=== PATIENT | female | born 1940 | race Caucasian/White ===

== ENCOUNTER 2019-08-06 05:03 | Inpatient (IN) | payer BC ==
[~2019-08-06] VITALS: Ht 160 cm; Wt 65.8 kg
[~2019-08-06 05:03] MED LIST: ALPRAZOLAM; ALPRAZOLAM2 MG PO; ARICEPT10 M1 PO; CLONAZEPAM 1 MG1 M1 PO; DEPAKOTE; DEPAKOTE500 MG PO; ESTRACE2 MG PO; ESTRADIOL; GLUCOPHAGE500 MG PO; KEFLEX500 MG PO; LEVOTHYROXINE; METFORMIN; RENVELA800 MG PO; RESTORIL15 MG PO; SEROQUEL200 MG PO; SIMVASTATIN80 MG PO; SYNTHROID88 MC1 PO; TRIPHROCAPS SOFT1 MG PO; ZOLOFT; ZOLOFT100 MG PO
[2019-08-06 05:05] VITALS: BP 168/63
[2019-08-06] MEDS ORDERED: ZONEGRAN100 MG PO (05:30)
[2019-08-06] MEDS ORDERED: BUSPIRONE HCL10 MG PO (05:31)
[2019-08-06 05:32] LABS: ABSOLUTE EOSINOPHILS 0.1 thou/uL (0.0-0.7); ABSOLUTE LYMPHOCYTES 3.8 thou/uL (0.8-5.3); ABSOLUTE MONOCYTES 0.7 thou/uL (0.0-1.2); ABSOLUTE NEUTROPHILS 4.6 thou/uL (1.6-8.1); BASOPHILS 0.4 %; EOSINOPHILS 0.7 %; HEMATOCRIT 34.6 % (37.0-47.0); HEMOGLOBIN 11.7 gm/dL (12.0-15.0); LYMPHOCYTES 41.4 %; MCH 32.2 pg (26.0-34.0); MCHC 33.9 g/dL (28.0-37.0); MCV 94.9 fL (80.0-100.0); MONOCYTES 7.5 %; MPV 6.7 fl. (7.2-11.1); NUCLEATED RBCS 0 /100WBC; PLATELET COUNT* 262 thou/uL (150-400); RBC 3.65 mil/uL (4.20-5.00); RDW-CV 13.5 % (10.5-14.5); WBC 9.1 thou/uL (4.0-11.0)
[2019-08-06] MEDS ORDERED: NAMENDA 10 MG T10 MG PO (05:32)
[2019-08-06] MEDS ORDERED: SINGULAIR 10 MG10 M1 PO (05:34)
[2019-08-06] MEDS ORDERED: VITAMIN D35000 UNI2 PO (05:34)
[2019-08-06] MEDS ORDERED: TIZANIDINE HCL2 M1 PO (05:35)
[2019-08-06 05:37] LABS: CALCIUM 9.2 mg/dL (8.5-10.1); CREATININE 1.1 mg/dL (0.6-1.3); POTASSIUM 3.5 mmol/L (3.5-5.1)
[2019-08-06 05:43] LABS: ALBUMIN 3.4 g/dL (3.4-5.0); TOTAL BILIRUBIN 0.1 mg/dL (<0.1-1.0); TOTAL PROTEIN 7.8 g/dL (6.4-8.2)
[2019-08-06 07:46] VITALS: BP 134/59
[2019-08-06 12:30] VITALS: BP 122/53
[2019-08-06 13:40] VITALS: BP 102/49
[2019-08-06] MEDS ORDERED: DIVALPROEX SOD500 MG PO (14:54)
[2019-08-06 16:23] VITALS: BP 109/55
--- NOTE | 2019-08-06 19:33 | NUR ---
PT ARRIVED TO ROOM 200 AT APPROX 1230 FROM SURGERY. PT A/O X4 BUT FORGETFUL. C/O PAIN AT 10/10 IN RIGHT LEG. PAIN MEDS GIVEN PER MAR, PT REPORTS NO RELIEF. ADMISSION ASSESMENT DONE CHARTED. REVIEWED HOME MEDS PER LIST GIVEN BY . PT UP WITH ASSIST TO BSC, NWB RIGHT LEG, HAD SOME TROUBLE URINATING ON THE BEDPAN, WAS ABLE TO VOID PER BSC. FALL PRECAUTIONS IN PLACE. PT USES CALL LIGHT FOR NEEDS. REPORT GIVEN TO MARIAELENA NICHOLS
[2019-08-06 20:00] VITALS: BP 129/53
[2019-08-07] VITALS: BP 108/46
[2019-08-07 04:00] VITALS: BP 104/47
[2019-08-07 08:00] VITALS: BP 119/50
--- NOTE | 2019-08-07 10:33 | EKG ---
[place] [address] ELECTROCARDIOGRAM REPORT Name: SHRUTHI MARTINNIFRED Waleska Room: [address] ADM IN M.R.#: [id number] Admission: 08/06/19 Attend Phys: Rosita Scherer Discharge: Date of : 42 Report #: [id number] THIS REPORT FOR: //name// [facility] ED Test Date: 2019-08-06 Test Time: 05:42:34 Pat Name: FARHEEN MARTIN Department: Room: [facility] Gender: F Hose Tester: [place] : 1940 Requested By: Mariajose Sullivan Order Number: [id number] MD: Porter Iqbal Measurements Intervals [place] Rate: 89 P: 54 MT: 167 QRS: 48 QRSD: 88 T: 56 QT: 361 QTc: 440 Interpretive Statements Sinus rhythm Abnormal R-wave progression, early transition Compared to ECG 01/03/2013 18:19:17 No significant changes Electronically Signed On 08-07-2019 10:32:41 HOME ENERGY AUDITOR by Porter Iqbal [email or web address] <ELECTRONICALLY SIGNED> By: Daniel Iqbal MD, [facility] 08/07/19 1032 0542 [id number] Daniel Iqbal MD, [facility] /EPI
[2019-08-07 12:29] VITALS: BP 122/60
[2019-08-07 16:01] VITALS: BP 116/91
--- NOTE | 2019-08-07 19:50 | NUR ---
assumed pt care at 0730, full assesment done as charted. pt a/o x4, forgetful. up with assist, gait belt, walker, NWB right leg. pt transfering well with turn and pivot. fall precatuions in place. pt c/o pain to right leg 05/05, pain meds given per mar with no relief. pt calls frequently for needs. hopeful to get surgery on leg soon. at bedside this afternoon. report given to Radha NICHOLS
[2019-08-07 20:00] VITALS: BP 155/59
[2019-08-08 00:01] VITALS: BP 121/52
--- NOTE | 2019-08-08 02:02 | NUR ---
ASSUMED CARE OF PATIENT AT 1900. VSS, AFEBRILE. UP TO THE BSC SEVERAL TIMES TO VOID. LACTATED RINGERS STILL RUNNING PER ORDERS. REQUESTS PAIN MEDS OFTEN. STATES NOTHING HELPS. PAIN IS ALWAYS A 10. PRN MEDS GIVEN ORDERED. NO NEW ORDERS REGARDING SURGERY. RIGHT LEG DRESSING IS C/D/I. WORKING TOWARDS POC GOALS.
[2019-08-08 04:00] VITALS: BP 103/45
[2019-08-08 04:42] LABS: ABSOLUTE BASOPHILS 0.1 thou/uL (0.0-0.2); ABSOLUTE EOSINOPHILS 0.1 thou/uL (0.0-0.7); ABSOLUTE LYMPHOCYTES 2.6 thou/uL (0.8-5.3); ABSOLUTE MONOCYTES 0.6 thou/uL (0.0-1.2); ABSOLUTE NEUTROPHILS 3.2 thou/uL (1.6-8.1); BASOPHILS 0.9 %; EOSINOPHILS 1.3 %; HEMATOCRIT 23.5 % (37.0-47.0); LYMPHOCYTES 39.6 %; MCH 32.2 pg (26.0-34.0); MCHC 34.4 g/dL (28.0-37.0); MCV 93.6 fL (80.0-100.0); MONOCYTES 9.5 %; NUCLEATED RBCS 0 /100WBC; PLATELET COUNT* 194 thou/uL (150-400); POLYS 48.7 %; RBC 2.51 mil/uL (4.20-5.00); RDW-CV 13.4 % (10.5-14.5); WBC 6.6 thou/uL (4.0-11.0)
[2019-08-08 04:53] LABS: HEMOGLOBIN 8.1 gm/dL (12.0-15.0)
[2019-08-08 05:06] LABS: ALBUMIN 2.4 g/dL (3.4-5.0); CALCIUM 8.3 mg/dL (8.5-10.1); CREATININE 0.8 mg/dL (0.6-1.3); POTASSIUM 4.1 mmol/L (3.5-5.1); TOTAL BILIRUBIN 0.1 mg/dL (<0.1-1.0); TOTAL PROTEIN 5.9 g/dL (6.4-8.2)
[2019-08-08 08:00] VITALS: BP 115/48
[2019-08-08 11:15] VITALS: BP 115/59
--- NOTE | 2019-08-08 11:29 | NUR ---
Pt is A&O. Resides at home with her . Independent. Pt primarily uses a walker, but also has a wc. Pt states that she had a knee replacement in December 2018. Hx of [facility]. Hx of skilled at [facility]. Per Pt, plan surgery tomorrow. Pt states that if she needs skilled, she wants to go to [place] in [facility] to check to see if [place] accepts Pt's insurance. Following.
--- NOTE | 2019-08-08 16:26 | NUR ---
RECEIVED REPORT FROM YULY NICHOLS. ASSUMED CARE OF PT AROUND 0730, PT A&O X4 BUT FORGETFUL AT TIMES. VSS. CAR LOT ATTENDANT IN PLACE TRACING SR WITH NO CHANGES SO FAR THIS SHIFT. AM ASSESSMENT AND VITALS COMPLETED CHARTED. IV INTACT AND INFUSING IVF. MEDS PER EMAR. PT HAS REPORTED RIGHT LEG PAIN THAT HAS BEEN MANAGED WITH PO PAIN MEDICATION WITH PARTIAL RELIEF. PT TOLERTING DIET. DRINKING WELL. FAMILY AT BEDSIDE THIS AFTERNOON. PT WORKED WITH PT AND OT THIS SHIFT. PT TRANSFERING WELL TO BEDSIDE COMMODE WITH ASSIST X1, WALKER AND GAIT BELF - NWB TO RIGHT LEG MAINTAINED. PT CURRENLTY RESTING IN BED WATCHING TV. FALL PRECAUTIONS IN PLACE. CALL LIGHT IS WITHIN REACH. HOURLY ROUNDING PERFORMED. PT TO TRANSFER TO [facility] ROOM 115. REPORT CALLED TO TIM NICHOLS.
--- NOTE | 2019-08-08 16:45 | NUR ---
REC'D TO RM 215 TRANSFER FROM TELE. REPORT REC'D. ~TJRN
[2019-08-08 20:00] VITALS: BP 130/55
[2019-08-09 04:25] LABS: ABSOLUTE EOSINOPHILS 0.1 thou/uL (0.0-0.7); ABSOLUTE LYMPHOCYTES 2.9 thou/uL (0.8-5.3); ABSOLUTE MONOCYTES 0.7 thou/uL (0.0-1.2); ABSOLUTE NEUTROPHILS 2.5 thou/uL (1.6-8.1); BASOPHILS 0.7 %; EOSINOPHILS 2.4 %; HEMATOCRIT 23.7 % (37.0-47.0); HEMOGLOBIN 8.1 gm/dL (12.0-15.0); LYMPHOCYTES 46.6 %; MCH 32.3 pg (26.0-34.0); MCHC 34.4 g/dL (28.0-37.0); MCV 93.9 fL (80.0-100.0); MONOCYTES 10.4 %; MPV 6.9 fl. (7.2-11.1); NUCLEATED RBCS 0 /100WBC; PLATELET COUNT* 215 thou/uL (150-400); POLYS 39.9 %; RBC 2.52 mil/uL (4.20-5.00); RDW-CV 13.3 % (10.5-14.5); WBC 6.3 thou/uL (4.0-11.0)
[2019-08-09 04:51] LABS: ALBUMIN 2.5 g/dL (3.4-5.0); CALCIUM 8.6 mg/dL (8.5-10.1); CREATININE 0.8 mg/dL (0.6-1.3); POTASSIUM 3.5 mmol/L (3.5-5.1); TOTAL BILIRUBIN 0.1 mg/dL (<0.1-1.0); TOTAL PROTEIN 6.1 g/dL (6.4-8.2)
[2019-08-09 05:34] VITALS: BP 121/54
[2019-08-09 06:15] VITALS: BP 121/54
--- NOTE | 2019-08-09 08:15 | NUR ---
PT A+O X4. UP TO THE COMMODE SEVERAL TIMES. DIFFICULTY SLEEPING. PRN PAIN MEDICATIONS GIVEN AFTER PT'S REGULAR HS MEDS. PT WAS FINALLY ABLE TO SLEEP. PREOP CHECKLIST STARTED. REPORT TO DAY RN. CALL LIGHT IN REACH. HOURLY ROUNDING FOR SAFETY.
[2019-08-09 08:42] VITALS: BP 134/59
--- NOTE | 2019-08-09 18:44 | NUR ---
PT CURRENTLY IN SURGERY. BEFORE LEAVING FOR PACU PT WAS A&Ox4. VITALS STABLE. UP WITH 1 TO CAMMODE. IV IN R FA PLACED BY INFUSION. WILL UPDATE IF RETURNS FROM SURGERY.
[2019-08-09 21:30] VITALS: BP 164/69
[2019-08-10] VITALS: BP 158/63
[2019-08-10 04:14] VITALS: BP 141/56
[2019-08-10 05:34] LABS: ABSOLUTE LYMPHOCYTES 1.4 thou/uL (0.8-5.3); ABSOLUTE MONOCYTES 0.8 thou/uL (0.0-1.2); BASOPHILS 0.4 %; HEMATOCRIT 22.1 % (37.0-47.0); HEMOGLOBIN 7.8 gm/dL (12.0-15.0); LYMPHOCYTES 15.2 %; MCHC 35.2 g/dL (28.0-37.0); MCV 93.9 fL (80.0-100.0); MONOCYTES 8.3 %; NUCLEATED RBCS 0 /100WBC; PLATELET COUNT* 242 thou/uL (150-400); POLYS 76.1 %; RBC 2.35 mil/uL (4.20-5.00); RDW-CV 13.6 % (10.5-14.5); WBC 9.3 thou/uL (4.0-11.0)
[2019-08-10 05:50] LABS: ALBUMIN 2.5 g/dL (3.4-5.0); CALCIUM 8.3 mg/dL (8.5-10.1); CREATININE 0.8 mg/dL (0.6-1.3); TOTAL BILIRUBIN 0.1 mg/dL (<0.1-1.0); TOTAL PROTEIN 6.3 g/dL (6.4-8.2)
[2019-08-10 07:32] VITALS: BP 119/50
--- NOTE | 2019-08-10 07:37 | NUR ---
PT RETURNED FROM PACU @ 2129. RLE DRESSING/WRAP DRY AND INTACT. GOOD CAP REFILL. PAIN MEDICATION GIVEN @ BEDTIME. PT WAS UNABLE TO VOID. INSERTED CATHETER @ 0230 WITH 950CC RETURNED. PT ABLE TO REST THROUGH MOST OF SHIFT AFTER NIGHT AND PAIN MEDICATIONS. TOLERATING CLEAR FLUIDS. CALL LIGHT IN REACH. HOURLY ROUNDING FOR SAFETY.
--- NOTE | 2019-08-10 15:35 | NUR ---
I have reviewed the documentation by CHELSY PRASAD from 08/10/19 to 08/10/19 and I concur with it. JOSE ANGEL DE LA ROSA
[2019-08-10 16:00] VITALS: BP 139/49
--- NOTE | 2019-08-10 17:34 | NUR ---
SPOKE WITH PT.AND DAUGHTER ABOUT DISCHARGE PLANNING. TOLD THEM,PER 'S CONSULT, HE FEELS SHE WOULD DO BETTER WITH SNF. DAUGHTER SAID SURGEON REALLY WANTS TO PUSH FOR PT.TO GO UPSTAIRS TO INPT.REHAB, HE WANTS TO BE ABLE TO KEEP AN EYE ON HER INCISION. GAVE LIST OF SNFS IN NETWORK WITH HER INSURANCE. SHE WOULD LIKE TO GO TO [place] SO HER COULD COME TO SEE HER EVERY DAY. WILL MAKE REFERRAL IN AM.
--- NOTE | 2019-08-10 18:56 | NUR ---
PT AOX2-3 THIS SHIFT, EDMONDS DISCONTINUED AND BLADDER SCAN AND STRAIGHT CATH ORDERS PLACED. PT HAS VOIDED SINCE EDMONDS HAS BEEN REMOVED. PT TOLERATING NC AT 2L AND IV FLUIDS RUNNING THIS SHIFT. PT DRESSING CDI AT THIS TIME. PT TOLERATING STAND PIVOT TO COMMODE AND ORAL PAIN MEDICATIONS THIS SHIFT BUT IS NON-WEIGHT BEARING TO LEG WITH FX. HOURLY ROUNDING MAINTAINED THIS SHIFT. NO OTHER CONCERNS NOTED.
[2019-08-10 20:00] VITALS: BP 131/93
[2019-08-11 03:59] LABS: ABSOLUTE EOSINOPHILS 0.1 thou/uL (0.0-0.7); ABSOLUTE LYMPHOCYTES 2.5 thou/uL (0.8-5.3); ABSOLUTE MONOCYTES 0.6 thou/uL (0.0-1.2); ABSOLUTE NEUTROPHILS 3.4 thou/uL (1.6-8.1); BASOPHILS 0.6 %; EOSINOPHILS 1.6 %; HEMATOCRIT 20.7 % (37.0-47.0); HEMOGLOBIN 7.1 gm/dL (12.0-15.0); LYMPHOCYTES 36.8 %; MCH 32.4 pg (26.0-34.0); MCHC 34.6 g/dL (28.0-37.0); MCV 93.6 fL (80.0-100.0); MONOCYTES 9.5 %; MPV 6.6 fl. (7.2-11.1); NUCLEATED RBCS 0 /100WBC; PLATELET COUNT* 256 thou/uL (150-400); POLYS 51.5 %; RBC 2.21 mil/uL (4.20-5.00); RDW-CV 13.4 % (10.5-14.5); WBC 6.7 thou/uL (4.0-11.0)
[2019-08-11 04:39] LABS: ALBUMIN 2.4 g/dL (3.4-5.0); CALCIUM 8.1 mg/dL (8.5-10.1); CREATININE 0.7 mg/dL (0.6-1.3); POTASSIUM 3.4 mmol/L (3.5-5.1); TOTAL BILIRUBIN 0.2 mg/dL (<0.1-1.0); TOTAL PROTEIN 5.9 g/dL (6.4-8.2)
[2019-08-11 08:30] VITALS: BP 124/51
--- NOTE | 2019-08-11 09:27 | NUR ---
PT AX4 WITH SHORT TERM MEMORY LOSS (CHRONINC WITH DEMENTIA). PAIN MEDICATION GIVEN X2 FOR PAIN. PT WAS ABLE TO REST THROUGH THE NIGHT. RLE ELEVATED. CALL LIGHT IN REACH. HOURLY ROUNDING FOR SAFETY.
--- NOTE | 2019-08-11 12:30 | NUR ---
I have reviewed the documentation by CHELSY PRASAD from 08/11/19 to 08/11/19 and I concur with it. JOSE ANGEL DE LA ROSA
--- NOTE | 2019-08-11 17:20 | NUR ---
DAWNA/REHAB [facility] TOLD CM THAT RE LOOKED AT PT.AND HE HAS NOW AGREED TO ACCEPT PT.ON ACUTE INPT.UNIT PENDING INSURANCE AUTH. INFORMED PT.AND DAUGHTER.
--- NOTE | 2019-08-11 18:44 | NUR ---
I ASSUMED CARE OF THE PATIENT AT 0700. SHE IS ALERT AND ORIENTED X4, BUT IMPULSIVE. BED ALARM IS ON. SHE IS UP WITH ONE AND A WALKER/GAIT BELT. BED IS IN THE LOW LOCKED POSITION AND CALL LIGHT IS IN REACH. HOURLY ROUNDING IS COMPLETED AND PATIENT NEEDS ARE MET. PAIN IS MANAGED WITH PRN MEDS. SHE IS TEARFUL TODAY AND SEEMS FRUSTRATED. WE DID MEAL PLANNING FOR TOMORROW. CM SAID THAT PATIENT WILL GO TO REHAB ON 3 FOLLOWING INSURANCE AUTH. LIKELY ON 08/12/19. SHE USES THE COMMODE HOURLY AND NEEDS MEDS TO SLEEP. WILL CONTINUE TO MONITOR.
[2019-08-11 20:40] VITALS: BP 141/58
[2019-08-12 04:00] LABS: CALCIUM 8.4 mg/dL (8.5-10.1); CREATININE 0.9 mg/dL (0.6-1.3); POTASSIUM 3.8 mmol/L (3.5-5.1)
[2019-08-12 04:08] LABS: HEMATOCRIT 19.7 % (37.0-47.0); HEMOGLOBIN 6.9 gm/dL (12.0-15.0)
--- NOTE | 2019-08-12 05:42 | NUR ---
ASSUMED CARE OF PT 08/11/19 AT APPROX 1930, PT A&OX4, PT ON ROOM AIR, VSS, PAIN AND ANXIETY MEDS REQUESTED AND GIVEN ORDERED, ASSESSMENTS AND HOURLY ROUNDINGS COMPLETED. NOTIFIED BY TAMARA IN LAB AT 0406 PT'S Hgb 6.9 AND Hct 19.7, MESSAGE SENT TO PHYSICIAN AT 0413, CALL BACK RECEIVED AT 0441, ORDER GIVEN TO INFUSE 1 UNIT OF PACKED RED BLOOD CELLS. WILL CONTINUE TO MONITOR.
[2019-08-12 07:25] VITALS: BP 96/46
[2019-08-12 11:14] VITALS: BP 100/50; BP 104/55; BP 108/53; BP 88/44; BP 97/48
--- NOTE | 2019-08-12 13:42 | NUR ---
PT.RECEIVING BLOOD TRANSFUSION TODAY. SPOKE WITH DAWNA/VENESSA. SHE SAID SHE HAS MADE AUTH REQUEST FOR INPT.REHAB WITH PT.S INSURANCE BUT MOST LIKELY WILL NOT OBTAIN AUTH UNTIL THURSDAY.
--- NOTE | 2019-08-12 17:05 | NUR ---
PT WAS ALERT AND DROWSY THIS AM. UNIT OF BLOOD ADMINISTERED, BP INCREASED AND PT BECAME MORE ALERT. PT RESTING IN BED. FALL RISK PRECAUTIONS IN PLACE. HOURLY ROUNDING COMPLETED. WILL CONTINUE TO MONITOR.
[2019-08-12 20:10] VITALS: BP 141/68
[2019-08-13 04:18] LABS: HEMATOCRIT 23.7 % (37.0-47.0); HEMOGLOBIN 8.3 gm/dL (12.0-15.0); MCH 32.1 pg (26.0-34.0); MCV 91.8 fL (80.0-100.0); MPV 6.2 fl. (7.2-11.1); RBC 2.58 mil/uL (4.20-5.00); RDW-CV 14.5 % (10.5-14.5); WBC 7.3 thou/uL (4.0-11.0)
[2019-08-13 04:29] LABS: CALCIUM 8.4 mg/dL (8.5-10.1); CREATININE 0.7 mg/dL (0.6-1.3); MAGNESIUM 1.6 mg/dL (1.8-2.4); POTASSIUM 3.7 mmol/L (3.5-5.1)
--- NOTE | 2019-08-13 05:31 | NUR ---
PATIENT SEEMED TO GET CONFUSED AT NIGHT BUT WAS ABLE TO REQUEST PAIN MEDICATION. SHE REPORTED A MIGRAINE HEADACHE GAVE HER 650 MG TYLENOL FOR. SHE IS ABLE TO PIVOT TO COMMODE STILL AND COUGH HAS IMPROVED. ON 3L OF O2 AND ALL BEDRAILS UP AT PATIENT REQUEST. WILL CONTINUE TO FOLLOW PLAN OF CARE.
[2019-08-13 07:20] VITALS: BP 145/69
--- NOTE | 2019-08-13 17:29 | NUR ---
pt remained alert and oriented with forgetfulness. pt pivot to commode and worked with therapy. pain meds given as ordered. fall risk precautions in place. hourly rounding completed. will continue to monitor.
[2019-08-13 20:46] VITALS: BP 141/64
[2019-08-14 04:50] LABS: HEMATOCRIT 23.9 % (37.0-47.0); HEMOGLOBIN 8.3 gm/dL (12.0-15.0); MCH 32.1 pg (26.0-34.0); MCHC 34.8 g/dL (28.0-37.0); MPV 6.2 fl. (7.2-11.1); RBC 2.6 mil/uL (4.20-5.00); RDW-CV 14.1 % (10.5-14.5); WBC 6.9 thou/uL (4.0-11.0)
[2019-08-14 04:57] LABS: CALCIUM 8.1 mg/dL (8.5-10.1); CREATININE 0.7 mg/dL (0.6-1.3); MAGNESIUM 1.6 mg/dL (1.8-2.4); POTASSIUM 3.6 mmol/L (3.5-5.1)
--- NOTE | 2019-08-14 05:47 | NUR ---
I DID NOT HEAR HER COUGH AT ALL DURING THE NIGHT. SHE WAS UP SEVERAL TIMES TO USE THE COMMODE. NO REPORTS OF WORSENING PAIN OR NAUSEA. SHE DID NOT SEEM CONFUSED LAST NIGHT AND WAS IN A PLEASANT MOOD. SHE RECEIVED ALL MEDS SCHEDULED AND PLAN MAYBE TO GO TO A REHAB TODAY. WILL CONTINUE TO FOLLOW PLAN OF CARE.
[2019-08-14 07:25] VITALS: BP 105/49
[2019-08-14 16:00] VITALS: BP 109/53
--- NOTE | 2019-08-14 17:23 | NUR ---
PT REMAINED ALERT AND ORIENTED. PT C/O MIGRAINE, MEDS GIVEN ORDERED. FALL RISK PRECAUTIONS IN PLACE. HOURLY ROUNDING COMPLETED. WILL CONTINUE TO MONITOR.
[2019-08-14 20:11] VITALS: BP 144/56
--- NOTE | 2019-08-15 05:17 | NUR ---
SHE SLEPT WELL THROUGH THE NIGHT AND WAS ABLE TO MAINTAIN PAIN MANAGEMENT. SHE IS STILL UP TO THE COMMODE WITH ASSIST X1. NO REPORTS OF WORSENING PAIN. SHE MAY TRANSFER TO REHAB [ENDING INSURANCE APPROVAL. WILL CONTINUE TO FOLLOW PLAN OF CARE.
[2019-08-15] MEDS ORDERED: HYDROCODON-ACE1 EAC7 PO (09:51)
[2019-08-15] MEDS ORDERED: ALPRAZOLAM0.5 M2 PO (09:51)
--- NOTE | 2019-08-15 12:49 | NUR ---
CONTINUE TO WAIT ON AUTHORIZATION FROM INSURANCE FOR ACUTE INPT.REHAB.
[2019-08-15 16:18] VITALS: BP 148/65
--- NOTE | 2019-08-15 17:11 | NUR ---
I have reviewed the documentation by CHELSY PRASAD from 08/15/19 to 08/15/19 and I concur with it. JOSE ANGEL DE LA ROSA
--- NOTE | 2019-08-15 19:00 | NUR ---
PATIENT COOPERATIVE W/ ASSESS AND CARES THIS SHIFT. COOPERATIVE W/ THERAPIES. MAINTAINING NWB STATUS TO RLE, ELEVATED ON PILLOW WHILE IN BED. PATIENT UNABLE TO SIT IN RECLINER FOR MORE THEN 20MIN THIS AM. STATES BACK IS TOO PAINFUL TO SIT UP FOR A LONG PERIOD OF TIME. PATIENT STATES WILL BE BRINGING IN BATTERY FOR BACK STIMULATOR. HRLY ROUNDS DONE. CALL LIGHT IN REACH. ~TJRN
--- NOTE | 2019-08-16 06:47 | NUR ---
PATIENT HAS BEEN RESTLESS AND ANXIOUS OFF AND ON DURING THE NIGHT. PATIENT PULLING HER NIGHTGOWN OFF AND UPSET BECAUSE IT IS WRINKLED. PATIENT COMPLAINING ABOUT TOO MANY BLANKET AND THEN ABOUT NOT HAVING ENOUGH BLANKET A BIT LATER. PATIENT ALSO STATING THAT OUT TOILET PAPER IS CHEAP. VERY UNHAPPY AT TIMES. CAST TO RIGHT LEG IS IN PLACE. PATIENT REMAINS NWB ON RIGHT LOWER EXTREMITY. IV IN RIGHT FOREARM-SL. PATIENT INSTRUCTED TO USE CALL LIGHT WHEN NEEDING ASSISTANCE. HOURLY ROUNDS MADE. WILL CONTINUE WITH PLAN OF CARE AND NURSING TO MONITOR.
[2019-08-16 07:30] VITALS: BP 150/76
--- NOTE | 2019-08-16 11:43 | NUR ---
SPOKE TO [facility]. STILL PENDING INSURANCE AUTHORIZATION. PT AND FAMILY NOTIFIED
--- NOTE | 2019-08-16 13:12 | NUR ---
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 Seen for LOS. Awaiting discharge to Rehab. Wt is a bed wt of 145#, but admit was 125#. Will follow wt trends. Regular diet. Alb 2.4, prealb 14.9. Physician indicated moderate PCM - defer DX. No nutriiton interventions at this time. Mild risk.
--- NOTE | 2019-08-16 15:00 | NUR ---
I have reviewed the documentation by CHELSY PRASAD from 08/16/19 to 08/16/19 and I concur with it. JOSE ANGEL DE LA ROSA
[2019-08-16 16:00] VITALS: BP 136/77
--- NOTE | 2019-08-16 17:01 | NUR ---
pt remained alert and oriented. pain meds given as ordered. pt resting in bed. fall risk precautions in place. hourly rounding completed. will continue to monitor.
[2019-08-17 07:30] VITALS: BP 153/77
--- NOTE | 2019-08-17 07:33 | NUR ---
PATIENT HAS BEEN RESTLESS DURING THE NIGHT. VSS ON RA. NO C/O PAIN. MEDICATIONS GIVEN ORDERED AND CHARTED. PATIENT UP WITH ASSIST X 1 AND PIVOTS TO THE BSC. PATIENT REMAINS NWB ON RIGHT LOWER EXTREMITY. IV IN RIGHT FOREARM-SL. PATIENT INSTRUCTED TO USE CALL LIGHT WHEN NEEDING ASSISTANCE. HOURLY ROUNDS MADE. WILL CONTINUE WITH PLAN OF CARE AND NURSING TO MONITOR.
--- NOTE | 2019-08-17 09:17 | NUR ---
SPOKE TO [facility] TO CHECK STATUS OF ADMISSION. PENDING PEER TO PEER EVAL. SHE STATES SHE WILL CONTACT DR LAUGHLIN
[2019-08-17 11:36] VITALS: BP 153/77
[2019-08-17] MEDS ORDERED: PROCTOCREAM-HC30 GM RECTAL (12:28)
[2019-08-17] MEDS ORDERED: FLORANEX TABLE1 EACH PO (12:28)
[2019-08-17 13:09] VITALS: BP 153/77
[2019-08-17 16:20] VITALS: BP 149/78
--- NOTE | 2019-08-17 17:14 | NUR ---
PT REMAINED ALERT AND ORIENTED. PT GOING UP TO REHAB TODAY AT SHIFT CHANGE. PT BELONGINGS GATHERED AND AWAITING TO GIVE REPORT TO NEW NURSE. FALL RISK PRECAUTIONS IN PLACE. HOURLY ROUNDING COMPLETED. WILL CONTINUE TO MONITOR.
--- NOTE | 2019-08-17 19:48 | NUR ---
PT CHART SENT OT SAFIA. REPORT GIVEN TO NURSE. PT BELONGINGS GATHERED. PT TRANSFERED TO REHAB VIA BED WITH NURSING STAFF. IV REMOVED. HOURLY ROUNDING COMPLETED. FALL RISK PRECAUTIONS IN PLACE.
--- NOTE | 2019-08-24 17:28 | OP ---
[facility] [address] [place] [address] OPERATIVE REPORT Name: FARHEEN MARTIN Room: [address] IN .R.#: [id number] Admission: 08/06/19 Attend Phys: Rosita Scherer Discharge: 08/17/19 Date of : 42 Report #: [id number] THIS REPORT FOR: //name// CC: Jose Cruz PREOPERATIVE DIAGNOSES: Right grade 2 open distal tibial shaft fracture with intra-articular extension, status post irrigation and debridement and splinting. POSTOPERATIVE DIAGNOSES: Right grade 2 open distal tibial shaft fracture with intra-articular extension, status post irrigation and debridement and splinting. PROCEDURES: 1. Irrigation and debridement of grade 2 open right distal tibial shaft fracture with intra-articular extension. 2. Open reduction and internal fixation, right distal tibial shaft fracture, grade 2 open. 3. Closure of complex wound medially measuring 4 x 2 x 1 cm. SURGEON: Shaan Joseph DO AIR TESTER: Pepe Ritter DO ANESTHESIA: General. ANTIBIOTICS: Scheduled antibiotics, Ancef per open fracture protocol. We will continue for 48 hours postoperatively. FLUIDS: 1100 mL of lactated Ringer's. BLOOD LOSS: 100 mL. COMPLICATIONS: None. SPECIMENS: None. DRAINS: None. CONDITION: The patient is stable to PACU. IMPLANTS: Synthes anterolateral distal tibial plate, 21 hole cortical screws proximally x 4 and locking screws distally x 5. INDICATIONS FOR PROCEDURE: The patient originally presented to [facility] with open tibial shaft fracture. She underwent operative irrigation and debridement and splinting, today scheduled for irrigation and [facility] [address] [place] [address] OPERATIVE REPORT Name: FARHEEN MARTIN Room: [address] IN [facility].#: [id number] Admission: 08/06/19 Attend Phys: Rosita Scherer Discharge: 08/17/19 Date of : 42 Report #: [id number] debridement as long as appropriate definitive fixation and closure of wounds, went over the plan and detail with the patient's family. Obtained consent to proceed after discussing risks and complications. DESCRIPTION OF PROCEDURE: I marked the right lower extremity in the presence of the operative team members. Everyone agreed this was correct. She was taken back to the operative suite where a briefing was performed indicating correct patient, procedure, site, antibiotics and that implants were present and sterile. All team members agreed. General anesthetic was administered. She was then transferred over to the operative table in supine position, well-padded and secured appropriately. A well-padded tourniquet was placed proximally on the right lower extremity, which was then sterilely prepped and draped in standard fashion. Prior to that, sutures have been removed along the medial edge prior to closure. Timeout was performed indicating correct patient, procedure, site, antibiotics and that implants were present and sterile. All team members agreed. We began by visualizing the wound. No evidence of any gross contamination, good edges. No evidence of necrosis. Bone edges appeared healthy, cleaned, thoroughly irrigated after our thorough debridement with 9 liters of normal saline. We then turned our attention after that by removing our gloves and getting rid of any instruments used in that particular area. We then marked out for an anterolateral approach. Skin bridge would be appropriate over 6 cm between the medial wound. At this point, her skin had excellent wrinkling and was safer to proceeding forward with surgery. We made our incision planning, so that we would get visualization of the distal tibia. We would percutaneously slide the plate. This would require a long plate, so that we had overlapped with her tibial stem. Scalpel was taken through skin, full thickness flaps, identified the superficial peroneal nerve and protected it throughout the entirety. After our appropriate musculotendinous interval we made sure that we had full protection of any neurovascular structures. We went directly on to the tip of distal tibia. We were then able to place a Larson underneath this, so that we could percutaneously slide our plate. We carefully percutaneously slid our plate, making sure that we were directly on the bone proximally. Proximally, we were able to take a lateral image and percutaneously make incisions, so that we can make sure the plate was sitting directly on the bone and get a clamp to bone in an appropriate position, it was sitting just proximal to the distal tibial stem, which was appropriate to decrease any stress riser. We then turned our attention down to the fracture sites on AP and lateral images. Our fracture was overall well aligned. There was a comminuted long segment fracture bridging fixation with secondary type feeling application would be a good option for this. There was a little bit of step-off, but however, once we had made a percutaneous incision, spread to bone, drilled, measured and placed an appropriately sized screw just proximal to the fracture. This caused a compression of the fracture with the plate, and reduced our fracture very nicely. We had overall restored length, alignment and rotation of the tibia very well. We then turned our attention distally where we drilled and placed the appropriate locking screws. We then percutaneously placed the [address] [address] OPERATIVE REPORT Name: FARHEEN MARTIN Room: [address]#: [id number] Admission: 08/06/19 Attend Phys: Rosita Scherer Discharge: 08/17/19 Date of : 42 Report #: [id number] remaining 3 cortical screws. These all had excellent purchase and her last screw was again proximal to the tibial stem to decrease stress riser effect. All hardware was in place at this time. Her leg was moving as a unit, had excellent stability. Confirmed in multiplanar C-arm imaging, the fracture reduction was excellent. We had restored the length, alignment, rotation, and hardware was in excellent position. Saved images and dismissed C-arm should be noted that when we began our anterolateral approach. We have gone up a tourniquet and we went down with tourniquet at a total of 48 minutes and maintained hemostasis. She had palpable pedal pulses and well perfused foot. We irrigated thoroughly with normal saline. Our medial open wound, the complex measuring 4 x 2 x 1 cm was closed with 3-0 nylon. Modified Allgower-Donati interrupted. Percutaneous incision sites were irrigated with normal saline and closed with 3-0 nylon simple interrupted. Anterolateral approach was irrigated with normal saline and closed with 0 PDS [id number] interrupted. Subcutaneous and skin were closed with 2-0 Monocryl buried deep and 3-0 nylon modified Allgower-Donati interrupted sutures. Debriefing was performed where we confirmed procedure, blood loss and all counts were correct and final. All team members agreed. Skin was examined, in good condition. She had no breakdown or heel ulceration or pressure sores at all over the malleoli. We placed her into a sterile very well-padded splint of Xeroform gauze, 4 x 4s, soft roll, bulky Rg padding, more soft roll and Sohail wrap. She was extubated and transferred off the operating table, taken to PACU, stable. POSTOPERATIVE COURSE AND EVALUATION: I spoke with her family members for wishes, addressed any questions they had, stated satisfaction and went over x-rays images with them both pre and postoperative, thankful for my time and efforts. She was resting in PACU with stable vital signs, pain controlled, neurovascularly intact. No pain, adequate range of motion with passive stretching. Compartments were soft and compressible. Negative Homans sign. PACU film shows stable internal fixation and fracture reduction. No change compared to final intraoperative images. Nonweightbearing. DVT prophylaxis will be both pharmacological and mechanical until instructed otherwise. PT, OT, case management help with discharge planning and continue antibiotics for 48 hours IV. Encouraged nursing, medical staff, family, the patient to call anytime with questions or concerns. <ELECTRONICALLY SIGNED> By: Shaan Joseph DO 08/24/19 1728 2057 [id number] Joseph DO /nt
== END 2019-08-17 19:30 | DRG 492 ==
LOC: M.ERS 05:03 → M.SUR 05:03 → EDSTATUS 09:32 → M.2W 10:27 → M.TBA 10:27 → M.ORTHSURG 10:27 → M.2W 12:32 → M.ORTHSURG 08-08 16:51
PROVIDERS: Emergency Medicine; Internal Medicine; ADMIT Internal Medicine
PROC: 0KQS3ZZ Repair Right Lower Leg Muscle, Percutaneous Approach (ICD-10-PCS; principal; 2019-08-06)
PROC: 0QSG04Z Reposition Right Tibia with Internal Fixation Device, Open Approach (ICD-10-PCS; principal; 2019-08-06)
PROC: 2W3LX1Z Immobilization of Right Lower Extremity using Splint (ICD-10-PCS; principal; 2019-08-06)
PROC: 0QSGXZZ Reposition Right Tibia, External Approach (ICD-10-PCS; principal; 2019-08-06)
PROC: 0QSG04Z Reposition Right Tibia with Internal Fixation Device, Open Approach (ICD-10-PCS; 2019-08-09)
PROC: 30233N1 Transfusion of Nonautologous Red Blood Cells into Peripheral Vein, Percutaneous Approach (ICD-10-PCS; 2019-08-12)
DX: S82.201A Unspecified fracture of shaft of right tibia, initial encounter for closed fracture (principal); G93.41 Metabolic encephalopathy; M97.11XA Periprosthetic fracture around internal prosthetic right knee joint, initial encounter; E44.0 Moderate protein-calorie malnutrition; K50.90 Crohn's disease, unspecified, without complications; S82.401A Unspecified fracture of shaft of right fibula, initial encounter for closed fracture; W01.0XXA Fall on same level from slipping, tripping and stumbling without subsequent striking against object, initial encounter; Y93.01 Activity, walking, marching and hiking; F03.90 Unspecified dementia, unspecified severity, without behavioral disturbance, psychotic disturbance, mood disturbance, and anxiety; G43.909 Migraine, unspecified, not intractable, without status migrainosus; G44.89 Other headache syndrome; E03.9 Hypothyroidism, unspecified; E11.9 Type 2 diabetes mellitus without complications; F32.9 Major depressive disorder, single episode, unspecified; Z96.653 Presence of artificial knee joint, bilateral; F02.80 Dementia in other diseases classified elsewhere, unspecified severity, without behavioral disturbance, psychotic disturbance, mood disturbance, and anxiety; Z96.659 Presence of unspecified artificial knee joint; R55 Syncope and collapse; I10 Essential (primary) hypertension; J30.9 Allergic rhinitis, unspecified; F41.9 Anxiety disorder, unspecified; M81.0 Age-related osteoporosis without current pathological fracture; J30.2 Other seasonal allergic rhinitis; Z68.25 Body mass index [BMI] 25.0-25.9, adult; Z79.899 Other long term (current) drug therapy; Y92.012 Bathroom of single-family (private) house as the place of occurrence of the external cause; Y99.8 Other external cause status; Z88.5 Allergy status to narcotic agent; Z88.2 Allergy status to sulfonamides; Z90.710 Acquired absence of both cervix and uterus; Z98.1 Arthrodesis status; Z87.820 Personal history of traumatic brain injury

== ENCOUNTER 2019-08-17 15:53 | Inpatient (IN) | payer BC ==
[~2019-08-17] VITALS: Ht 160 cm; Wt 53.1 kg
[~2019-08-17 15:53] MED LIST changes: +ALPRAZOLAM0.5 M2 PO; +BUSPIRONE HCL10 MG PO; +DIVALPROEX SOD500 MG PO; +FLORANEX TABLE1 EACH PO; +HYDROCODON-ACE1 EAC7 PO; +NAMENDA 10 MG T10 MG PO; +PROCTOCREAM-HC30 GM RECTAL; +SINGULAIR 10 MG10 M1 PO; +TIZANIDINE HCL2 M1 PO; +VITAMIN D35000 UNI2 PO; +ZONEGRAN100 MG PO
[2019-08-17 19:00] VITALS: BP 161/77
[2019-08-17 19:40] VITALS: BP 161/77
[2019-08-17 20:30] VITALS: BP 161/77
[2019-08-18 04:01] LABS: HEMATOCRIT 31.7 % (37.0-47.0); HEMOGLOBIN 10.8 gm/dL (12.0-15.0); MCH 31.6 pg (26.0-34.0); MCHC 34.2 g/dL (28.0-37.0); MCV 92.5 fL (80.0-100.0); MPV 5.7 fl. (7.2-11.1); RBC 3.43 mil/uL (4.20-5.00); RDW-CV 14.7 % (10.5-14.5); WBC 7.9 thou/uL (4.0-11.0)
[2019-08-18 04:12] LABS: CALCIUM 9.8 mg/dL (8.5-10.1); CREATININE 0.9 mg/dL (0.6-1.3); POTASSIUM 3.4 mmol/L (3.5-5.1)
[2019-08-18 07:49] VITALS: BP 155/65
[2019-08-18 20:27] VITALS: BP 177/74
[2019-08-19 07:51] VITALS: BP 144/63
[2019-08-19 20:15] VITALS: BP 163/67
[2019-08-20 07:30] VITALS: BP 134/65
[2019-08-20 20:18] VITALS: BP 155/63
[2019-08-21 07:31] VITALS: BP 126/54
[2019-08-21 19:15] VITALS: BP 142/70
[2019-08-22 08:12] VITALS: BP 161/65
[2019-08-22 19:00] VITALS: BP 136/67
[2019-08-23 05:32] LABS: HEMATOCRIT 30.3 % (37.0-47.0); HEMOGLOBIN 10.4 gm/dL (12.0-15.0); MCH 31.4 pg (26.0-34.0); MCHC 34.2 g/dL (28.0-37.0); MCV 91.8 fL (80.0-100.0); MPV 6.3 fl. (7.2-11.1); RBC 3.3 mil/uL (4.20-5.00); WBC 7.3 thou/uL (4.0-11.0)
[2019-08-23 05:46] LABS: ALBUMIN 2.8 g/dL (3.4-5.0); CALCIUM 8.8 mg/dL (8.5-10.1); CREATININE 1.1 mg/dL (0.6-1.3); POTASSIUM 3.8 mmol/L (3.5-5.1); TOTAL BILIRUBIN 0.2 mg/dL (<0.1-1.0); TOTAL PROTEIN 7.1 g/dL (6.4-8.2)
[2019-08-23 07:34] VITALS: BP 126/61
[2019-08-23 19:00] VITALS: BP 167/80
[2019-08-24 07:56] VITALS: BP 153/69
[2019-08-24 20:23] VITALS: BP 186/74
[2019-08-24 22:13] VITALS: BP 156/71
[2019-08-25 07:54] VITALS: BP 137/60
[2019-08-25 20:18] VITALS: BP 170/80
[2019-08-26 08:22] VITALS: BP 139/59; BP 144/63
[2019-08-26 20:23] VITALS: BP 180/69
[2019-08-27 08:00] VITALS: BP 130/59
[2019-08-27 19:30] VITALS: BP 156/55
[2019-08-28 19:30] VITALS: BP 167/71
[2019-08-29 06:44] LABS: HEMATOCRIT 32.2 % (37.0-47.0); HEMOGLOBIN 10.9 gm/dL (12.0-15.0); MCH 31.1 pg (26.0-34.0); MCHC 33.9 g/dL (28.0-37.0); MCV 91.6 fL (80.0-100.0); MPV 6.3 fl. (7.2-11.1); RBC 3.51 mil/uL (4.20-5.00); RDW-CV 14.7 % (10.5-14.5); WBC 6.8 thou/uL (4.0-11.0)
[2019-08-29 06:54] LABS: CALCIUM 9.4 mg/dL (8.5-10.1); CREATININE 0.8 mg/dL (0.6-1.3); POTASSIUM 3.7 mmol/L (3.5-5.1)
[2019-08-29 08:09] VITALS: BP 167/64
[2019-08-29] MEDS ORDERED: ASPIRIN PO (11:29)
[2019-08-29] MEDS ORDERED: COLACE100 MG PO (11:30)
[2019-08-29] MEDS ORDERED: NORCO 5-325 TA1 EAC1 PO (11:44)
[2019-08-29] MEDS ORDERED: AMERGE1 MG PO (11:56)
[2019-08-29 11:57] VITALS: BP 167/64
[2019-08-29 13:06] VITALS: BP 167/64
== END 2019-08-29 16:00 | disposition home health service (06) | DRG 947 ==
LOC: M.REH 15:53
PROVIDERS: Family Medicine; Internal Medicine; ADMIT Physical Medicine & Rehabilitation
DX: R53.81 Other malaise (principal); S82.201B Unspecified fracture of shaft of right tibia, initial encounter for open fracture type I or II; S82.401B Unspecified fracture of shaft of right fibula, initial encounter for open fracture type I or II; G93.41 Metabolic encephalopathy; J98.11 Atelectasis; D62 Acute posthemorrhagic anemia; E44.0 Moderate protein-calorie malnutrition; K50.90 Crohn's disease, unspecified, without complications; R09.02 Hypoxemia; F32.9 Major depressive disorder, single episode, unspecified; F41.9 Anxiety disorder, unspecified; E03.9 Hypothyroidism, unspecified; J30.9 Allergic rhinitis, unspecified; F03.90 Unspecified dementia, unspecified severity, without behavioral disturbance, psychotic disturbance, mood disturbance, and anxiety; G43.909 Migraine, unspecified, not intractable, without status migrainosus; E11.9 Type 2 diabetes mellitus without complications; D47.3 Essential (hemorrhagic) thrombocythemia; Z87.820 Personal history of traumatic brain injury; Z68.23 Body mass index [BMI] 23.0-23.9, adult; Z88.6 Allergy status to analgesic agent; Z88.2 Allergy status to sulfonamides; W18.39XA Other fall on same level, initial encounter; Y93.89 Activity, other specified; Y92.89 Other specified places as the place of occurrence of the external cause; Y99.8 Other external cause status

== ENCOUNTER → 2019-09-13 | Outpatient (CLI) | payer BC ==
[~2019-09-13] MED LIST changes: +AMERGE1 MG PO; +ASPIRIN PO; +COLACE100 MG PO; +NORCO 5-325 TA1 EAC1 PO
== END ==
LOC: M.LAB 12:59
DX: S82.301A Unspecified fracture of lower end of right tibia, initial encounter for closed fracture (principal); X58.XXXA Exposure to other specified factors, initial encounter; Y93.89 Activity, other specified; Y92.89 Other specified places as the place of occurrence of the external cause; Y99.8 Other external cause status

== ENCOUNTER → 2019-11-08 | Outpatient (CLI) | payer BC | LOC: M.LAB 12:25 | DX: S82.201A Unspecified fracture of shaft of right tibia, initial encounter for closed fracture (principal); X58.XXXA Exposure to other specified factors, initial encounter; Y93.89 Activity, other specified; Y92.89 Other specified places as the place of occurrence of the external cause; Y99.8 Other external cause status ==